=== PATIENT | male | born 1955 | race Caucasian/White ===

== ENCOUNTER → 2016-03-19 | Outpatient (CLI) | payer BC | LOC: LAB.O 12:50 | PROVIDERS: ATTEND Internal Medicine Nephrology | DX: N18.4 Chronic kidney disease, stage 4 (severe) (principal); N17.9 Acute kidney failure, unspecified ==

== ENCOUNTER → 2016-03-24 | Outpatient (CLI) | payer BC | LOC: LAB.O 11:41 | PROVIDERS: ATTEND Internal Medicine Nephrology | DX: N18.4 Chronic kidney disease, stage 4 (severe) (principal); N17.9 Acute kidney failure, unspecified ==

== ENCOUNTER → 2016-04-25 | Outpatient (CLI) | payer BC | END | disposition home or self-care (01) | LOC: GMAM 09:29 | PROVIDERS: ATTEND Family Medicine | DX: E87.1 Hypo-osmolality and hyponatremia (principal) ==

== ENCOUNTER → 2016-09-16 | Outpatient (CLI) | payer BC | END | disposition home or self-care (01) | LOC: GMAM 10:57 | PROVIDERS: ATTEND Family Medicine | DX: E55.9 Vitamin D deficiency, unspecified (principal) ==

== ENCOUNTER → 2016-12-01 | Outpatient (CLI) | payer BC | END | disposition home or self-care (01) | LOC: GMAM 14:47 | PROVIDERS: ATTEND Family Medicine | DX: R53.83 Other fatigue (principal) ==

== ENCOUNTER → 2017-06-25 | Outpatient (CLI) | payer MEDICARE | LOC: GMAM 10:21 | PROVIDERS: ATTEND Family Medicine | DX: E53.8 Deficiency of other specified B group vitamins (principal) ==

== ENCOUNTER → 2017-07-09 | Outpatient (CLI) | payer MEDICARE | LOC: GMAM 14:08 | PROVIDERS: ATTEND Family Medicine | DX: S73.109A Unspecified sprain of unspecified hip, initial encounter (principal); S76.919A Strain of unspecified muscles, fascia and tendons at thigh level, unspecified thigh, initial encounter ==

== ENCOUNTER → 2017-07-14 | Outpatient (CLI) | payer MEDICARE ==
--- NOTE | 2017-07-15 08:25 | MRI ---
EXAM DESCRIPTION: Lumbar Spine w/o Contrast MRI. CLINICAL HISTORY: LUMBAR RADICULOPATHY COMPARISON: None. TECHNIQUE: Multiplanar, multiple standard sequences, non contrast MRI, lumbar spine. FINDINGS: The S1 vertebra appears to be transitional partially lumbarized with a rudimentary S1-2 disc. The L5-S1 disc space is designated on the axial T2-weighted series 501, at image 3. L5-S1: Moderate to severe disc space loss, midline and the left margin associated with Modic type II endplate reactive changes. Disc spur complex abutting the exiting left L5 nerve with moderate to severe foraminal narrowing. Trace retrolisthesis in the midline. Disc is also bulging into the left paracentral extradural space. Mild to moderate narrowing of the right foramen. Minimal ligament hypertrophy posterior with AP canal diameter 12 mm. L4-5: Trace retrolisthesis in the midline. Disc desiccation. Moderate narrowing of the left foramen with right foramen patent. Mild to moderate canal narrowing with minimal flavum ligament hypertrophy. L3-4: Disc desiccation. Tiny posterior midline bulge. Flavum ligament hypertrophy. Mild bilateral foraminal narrowing and canal narrowing. L2-3: Minimal disc desiccation and disc space preserved with no bulging. Minimal flavum ligament hypertrophy. Canal and foramina are patent. L1-2: Minimal disc desiccation with no bulging and disc space preserved. Posterior elements are unremarkable. Canal and foramina are patent. T12-L1: Minimal disc desiccation. Old Schmorl's node inferior T12 endplate. No disc bulging. Conus terminates at this level. Canal and foramina are patent.. No scoliosis. Paravertebral soft tissues minimal muscle atrophy.. Normal marrow signal in the remaining vertebral bodies and the posterior elements. Vertebral bodies are not compressed at any level. IMPRESSION: 1. Moderate spondylosis in the midline into the left at L5-S1. Disc spur complex abutting the left L5 nerve in the foramen. Correlate for radiculopathy. Trace retrolisthesis. 2. Disc desiccation L4-5 with moderate narrowing of the left foramen. No canal or foraminal stenosis at the remaining levels. No significant disc bulging or spondylolisthesis. Electronically signed by: Kenny Taylor MD 07/15/2017 8:23 AM CDT
== END ==
LOC: MRI 14:00
PROVIDERS: ATTEND Family Medicine
DX: M47.27 Other spondylosis with radiculopathy, lumbosacral region (principal)

== ENCOUNTER → 2017-07-17 | Outpatient (CLI) | payer MEDICARE ==
--- NOTE | 2017-07-17 10:54 | US ---
EXAM DESCRIPTION: Venous,Lower Extremity RT CLINICAL HISTORY: PEDAL EDEMA COMPARISON: None. TECHNIQUE: 2D grayscale and color venous duplex Doppler evaluation of the lower extremity are obtained from groin to calf. FINDINGS: There is normal flow, augmentation to flow, and compressibility of the deep venous vasculature of the right lower extremity with no ultrasound evidence of deep venous thrombosis. There is an anechoic cyst in the popliteal fossa measuring 5.9 x 3.0 x 1.2 cm. Mild subcutaneous soft tissue edema in the distal lower extremity is noted. IMPRESSION: No ultrasound evidence of deep venous thrombosis . Moderate Holliday's cyst is seen. Electronically signed by: Hernan Knox MD 07/17/2017 10:52 AM CDT
== END ==
LOC: US 11:46
PROVIDERS: ATTEND Family Medicine
DX: R60.0 Localized edema (principal); M71.21 Synovial cyst of popliteal space [Baker], right knee

== ENCOUNTER 2017-07-20 09:30 | Inpatient (IN) | payer MEDICARE ==
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
[2017-07-20] MEDS ORDERED: ACETAMINOPHEN 325 MG TAB PO PRN (10:16)
[2017-07-20] MEDS ORDERED: SODIUM CHLORIDE 0.9% (FLUSH) 10 ML SYG IV PRN (10:16)
[2017-07-20] MEDS ORDERED: VANCOMYCIN PER PHARMACY IVPB SCH (10:30)
[2017-07-20] MEDS ORDERED: IV SET AND CAP CHANGE INJ INJ SCH (10:30)
--- NOTE | 2017-07-20 10:59 | PCM.CORE ---
Physician DVT/VTE - Nurse DVT Assessment & Total Each Risk Factor Represents 2 Points: Age 60-74 Each Risk Factor is 1 Point: Obesity (BMI >25) DVT Assessment Score: 3 - 3-4 High Risk Treatments: Early Ambulation *, Sequential Compression Device Pharmacological: Enoxaparin 40 mg SQ Daily
[2017-07-20] MEDS ORDERED: ENOXAPARIN SODIUM 40 MG/0.4 ML SYG SUBCU SCH (11:00)
[2017-07-20] MEDS ORDERED: SODIUM CHL 0.9% 50ML MIN-BAG+ 50 ML IVPB ONE ×2 (11:37→20:25)
[2017-07-20] MEDS ORDERED: cefTRIAXone SODIUM 1 GM VIAL ONE ×2 (11:37→20:26)
[2017-07-20] MEDS: cefTRIAXone SODIUM 1 GM in SODIUM CHL 0.9% 50ML MIN-BAG+ 50 ML IVPB SCH ×2 (11:41→22:30)
[2017-07-20] MEDS ORDERED: VANCOMYCIN HCL INJ 1,000 MG, VANCOMYCIN HCL INJ 250 MG in SODIUM CHLORIDE 0.9% 250ML 25... IVPB SCH (12:00)
[2017-07-20] MEDS ORDERED: VANCOMYCIN HCL INJ 500 MG VIAL ONE (12:47)
[2017-07-20] MEDS ORDERED: SODIUM CHLORIDE 0.9% 250ML 250 ML ONE (12:47)
[2017-07-20] MEDS ORDERED: VANCOMYCIN HCL INJ 1,000 MG VIAL IVPB ONE (12:47)
--- NOTE | 2017-07-20 13:05 | RAD ---
EXAM DESCRIPTION: Ankle,Right 3 Views CLINICAL HISTORY: cellulitis COMPARISON: July 09, 2017 IMPRESSION: 3 views of the right ankle show no evidence of acute fracture, focal bone destruction, or joint dislocation. Ankle mortise appears maintained. Moderate soft tissue swelling around the ankle is stable similar to previous. Small plantar enthesophyte of the calcaneus is seen. Electronically signed by: Hernan Knox MD 07/20/2017 1:04 PM CDT
--- NOTE | 2017-07-20 13:06 | RAD ---
EXAM DESCRIPTION: Tibia/Fibula,Right CLINICAL HISTORY: cellulitis COMPARISON: None. IMPRESSION: 2 views of the right tibia and fibula show no evidence of acute fracture, focal bone destruction, or joint dislocation. Periosteal thickening around the proximal fibula could represent sequela of remote prior trauma. Mild diffuse soft tissue swelling is seen. No radiopaque foreign bodies or soft tissue emphysema is appreciated. Electronically signed by: Hernan Knox MD 07/20/2017 1:05 PM CDT
[2017-07-20] MEDS: CARBIDOPA/LEVODOPA 25/100 1 TAB PO SCH ×2 (15:58→21:28)
[2017-07-20] MEDS: ARIPIPRAZOLE 2 MG PO SCH (21:22)
[2017-07-20] MEDS: CARVEDILOL 12.5 MG TAB PO SCH (21:23)
[2017-07-20] MEDS: FISH OIL 1,200 MG CAP PO SCH (21:24)
[2017-07-20] MEDS: LIFITEGRAST BOTH_EYES SCH (21:25)
[2017-07-20] MEDS: ATORVASTATIN 20 MG TAB PO SCH (21:26)
[2017-07-20] MEDS: MELATONIN 3 MG TAB PO SCH (21:27)
[2017-07-20] MEDS: MEMANTINE 10 MG TAB PO SCH (21:27)
[2017-07-20] MEDS: SODIUM CHLORIDE 0.9% (FLUSH) 10 ML SYG IV SCH (21:28)
[2017-07-20] MEDS: NON-FORMULARY MEDICATION 1 EA MIS (Telmisartan [Micardis] 40 MG) PO SCH (21:29)
[2017-07-21] MEDS ORDERED: VANCOMYCIN HCL INJ 500 MG VIAL ONE ×3 (00:49→22:06)
[2017-07-21] MEDS ORDERED: SODIUM CHLORIDE 0.9% 250ML 250 ML ONE ×3 (00:49→22:06)
[2017-07-21] MEDS: VANCOMYCIN HCL INJ 1,000 MG, VANCOMYCIN HCL INJ 250 MG in SODIUM CHLORIDE 0.9% 250ML 25... IVPB SCH ×2 (00:59→12:48)
[2017-07-21] MEDS ORDERED: VANCOMYCIN HCL INJ 1,000 MG VIAL IVPB ONE ×3 (01:03→22:06)
[2017-07-21] MEDS: PANTOPRAZOLE SODIUM TAB 40 MG PO SCH (05:54)
[2017-07-21] MEDS ORDERED: TELMISARTAN 20 MG PO SCH (09:00)
[2017-07-21] MEDS ORDERED: ENOXAPARIN SODIUM 40 MG/0.4 ML SYG SUBCU SCH (09:00)
[2017-07-21] MEDS ORDERED: CARVEDILOL 12.5 MG TAB PO SCH (09:00)
[2017-07-21] MEDS ORDERED: amLODIPine BESYLATE 5 MG TAB PO SCH ×2 (09:00→21:00)
[2017-07-21] MEDS: FENOFIBRIC ACID 135 MG CAP PO SCH (09:25)
[2017-07-21] MEDS: FISH OIL 1,200 MG CAP PO SCH ×2 (09:25→21:02)
[2017-07-21] MEDS: BIFIDOBACTERIUM INFANTIS 4 MG CAP PO SCH (09:25)
[2017-07-21] MEDS: CHOLECALCIFEROL 2,000 IU TAB PO SCH (09:27)
[2017-07-21] MEDS: CARBIDOPA/LEVODOPA 25/100 1 TAB PO SCH ×3 (09:27→21:04)
[2017-07-21] MEDS: VENLAFAXINE HCL TAB 75 MG TAB PO SCH (09:29)
[2017-07-21] MEDS: MEMANTINE 10 MG TAB PO SCH ×2 (09:29→21:03)
[2017-07-21] MEDS: SODIUM CHLORIDE 0.9% (FLUSH) 10 ML SYG IV SCH ×2 (09:31→21:03)
[2017-07-21] MEDS: CYANOCOBALAMIN 1,000 MCG TAB PO SCH (09:31)
[2017-07-21] MEDS: [UNRECOGNIZED DRUG - OTHER] TD SCH (09:33)
[2017-07-21] MEDS: LIFITEGRAST BOTH_EYES SCH ×2 (09:33→21:02)
[2017-07-21] MEDS: RIVASTIGMINE 9.5 MG/24 HR TD SCH (09:33)
[2017-07-21] MEDS ORDERED: cefTRIAXone SODIUM 1 GM VIAL ONE ×2 (10:04→20:41)
[2017-07-21] MEDS ORDERED: SODIUM CHL 0.9% 50ML MIN-BAG+ 50 ML IVPB ONE ×2 (10:04→20:39)
[2017-07-21] MEDS: cefTRIAXone SODIUM 1 GM in SODIUM CHL 0.9% 50ML MIN-BAG+ 50 ML IVPB SCH ×2 (10:36→22:22)
[2017-07-21] MEDS ORDERED: amLODIPine BESYLATE 5 MG TAB PO ONE (14:32)
--- NOTE | 2017-07-21 20:19 | PN ---
DATE: 07/21/17 SUPERVISING PHYSICIAN: Eitan Haynes M.D. SUBJECTIVE: The patient has been afebrile. He reports that his pain is much less and is feeling better. He has had no complications from therapy. OBJECTIVE: VITAL SIGNS: Temperature 98.1, pulse 64, blood pressure 154/82, respirations 18, satting 97% on room air. I's and O's are well balanced. His weight is 91.8 kg. CHEST: Lungs are clear to auscultation. HEART: Regular rate and rhythm. ABDOMEN: Soft, non-tender. Positive bowel sounds. EXTREMITIES: Right lower extremity continues to show some mild erythema on the anterior portion of the distal tib/fib area. Again, there is no consolidations , abscesses or drainage noted. The area is much improved and less edema noted. Pulses are distally strong. Capillary refill is brisk. NEUROLOGIC: He is alert and oriented times three. LABORATORY: White count 5,000, hemoglobin 13.5, hematocrit 39.4, platelet count 255,000. Differential shows to be without a left shift. Electrolytes today show sodium 133, potassium 3.5, BUN 9, creatinine 0.83, calcium 8.9. RADIOLOGY: No new radiological studies were submitted. ASSESSMENT: 1. Right lower extremity cellulitis, nonpurulent, failing to respond to outpatient treatment plan to include Bactrim, Keflex and doxycycline initially showing good response with vancomycin and Rocephin. 2. Chronic bilateral pedal edema secondary to calcium channel uziel. 3. Hypertension. 4. Lewy body dementia with reported behavioral disturbances. 5. Gastroesophageal reflux disease. 6. Benign prostatic hypertrophy. 7. Obstructive sleep apnea. PLAN: Will continue an additional 24 hours of parenteral antibiotics to include Rocephin and vancomycin. If he continues to show good response, anticipate discharging tomorrow. Will continue with close monitoring, including keep his knee elevated as much as possible. Once able to be discharged, he will need to continue with antibiotic therapy with doxycycline and a third generation cephalosporin for probably at least another 10 days. Until discharge, will continue to monitor and treat appropriately. #[id number] [facility]
[2017-07-21] MEDS: ARIPIPRAZOLE 2 MG PO SCH (21:00)
[2017-07-21] MEDS: CARVEDILOL 12.5 MG TAB PO SCH (21:01)
[2017-07-21] MEDS: MELATONIN 3 MG TAB PO SCH (21:03)
[2017-07-21] MEDS: ATORVASTATIN 20 MG TAB PO SCH (21:03)
[2017-07-21] MEDS: NON-FORMULARY MEDICATION 1 EA MIS (Telmisartan [Micardis] 40 MG) PO SCH (21:04)
[2017-07-22] MEDS: VANCOMYCIN HCL INJ 1,000 MG, VANCOMYCIN HCL INJ 250 MG in SODIUM CHLORIDE 0.9% 250ML 25... IVPB SCH (01:13)
[2017-07-22] MEDS: CARBIDOPA/LEVODOPA 25/100 1 TAB PO SCH (06:26)
[2017-07-22] MEDS: PANTOPRAZOLE SODIUM TAB 40 MG PO SCH (06:26)
[2017-07-22] MEDS ORDERED: TELMISARTAN 20 MG PO SCH (06:30)
[2017-07-22] MEDS ORDERED: CARVEDILOL 12.5 MG TAB PO SCH (06:30)
[2017-07-22 07:16] VITALS: BP 147/83; TEMP 98.5
[2017-07-22 07:54] VITALS: O2SAT 98
[2017-07-22] MEDS: LIFITEGRAST BOTH_EYES SCH (08:48)
[2017-07-22] MEDS: RIVASTIGMINE 9.5 MG/24 HR TD SCH (08:50)
[2017-07-22] MEDS: [UNRECOGNIZED DRUG - OTHER] TD SCH (08:50)
[2017-07-22] MEDS: FENOFIBRIC ACID 135 MG CAP PO SCH (08:51)
[2017-07-22] MEDS: MEMANTINE 10 MG TAB PO SCH (08:52)
[2017-07-22] MEDS: VENLAFAXINE HCL TAB 75 MG TAB PO SCH (08:52)
[2017-07-22] MEDS: BIFIDOBACTERIUM INFANTIS 4 MG CAP PO SCH (08:52)
[2017-07-22] MEDS: CHOLECALCIFEROL 2,000 IU TAB PO SCH (08:52)
[2017-07-22] MEDS: FISH OIL 1,200 MG CAP PO SCH (08:52)
[2017-07-22] MEDS: CYANOCOBALAMIN 1,000 MCG TAB PO SCH (08:53)
[2017-07-22] MEDS: SODIUM CHLORIDE 0.9% (FLUSH) 10 ML SYG IV SCH (08:59)
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
== END 2017-07-22 10:47 | disposition home or self-care (01) | DRG 603 ==
LOC: MS 09:30
PROVIDERS: ADMIT Nurse Practitioner Family; ATTEND Nurse Practitioner Acute Care
DX: L03.115 Cellulitis of right lower limb (principal); F02.81 Dementia in other diseases classified elsewhere, unspecified severity, with behavioral disturbance; R60.0 Localized edema; G31.83 Neurocognitive disorder with Lewy bodies; M19.90 Unspecified osteoarthritis, unspecified site; I10 Essential (primary) hypertension; K21.9 Gastro-esophageal reflux disease without esophagitis; R27.0 Ataxia, unspecified; N40.0 Benign prostatic hyperplasia without lower urinary tract symptoms; G47.33 Obstructive sleep apnea (adult) (pediatric); G89.29 Other chronic pain; M54.16 Radiculopathy, lumbar region; K58.9 Irritable bowel syndrome, unspecified; K86.89 Other specified diseases of pancreas; Z88.0 Allergy status to penicillin; Z79.899 Other long term (current) drug therapy; Z91.030 Bee allergy status; Y92.009 Unspecified place in unspecified non-institutional (private) residence as the place of occurrence of the external cause

== ENCOUNTER → 2017-08-12 | Outpatient (CLI) | payer MEDICARE | LOC: GMAM 10:22 | PROVIDERS: ATTEND Family Medicine | DX: E53.8 Deficiency of other specified B group vitamins (principal) ==

== ENCOUNTER → 2017-09-24 | Outpatient (CLI) | payer MEDICARE ==
--- NOTE | 2017-09-24 20:21 | US ---
EXAM DESCRIPTION: Soft Tissue,Head/Neck: ULTRASOUND. CLINICAL HISTORY: SKIN MASS COMPARISON: None Available. TECHNIQUE: Transcutaneous scanning: Lim-scale and Doppler modes. FINDINGS: Palpable mass in the midline base of the neck anterior. A mass with is isoechoic to the surrounding adipose tissue. Echogenic capsule and slightly lobular. Not vascular. Dimensions are 1.7 x 0.8 x 1.9 cm. Second mass in the adjacent soft tissues with similar appearance measuring 1.9 x 0.9 x 1.5 cm. Also not vascular. Midline base of the neck anterior is another palpable objects isoechoic to the surrounding adipose tissue measuring 5.1 x 1.3 x 3.6 cm. No separate hypoechoic mass or distinct cyst. No large calcifications or parenchymal edema. No abnormal vascularity. IMPRESSION: Multiple lipomas on the anterior neck which are palpable. If masses increase or becomes painful or resultant skin changes, consider MRI scan of the neck without and with gadolinium IV contrast. Electronically signed by: Kenny Taylor MD 09/24/2017 8:20 PM CDT
== END ==
LOC: US 13:51
PROVIDERS: ATTEND Family Medicine
DX: R22.2 Localized swelling, mass and lump, trunk (principal); D17.9 Benign lipomatous neoplasm, unspecified

== ENCOUNTER → 2017-11-16 | Outpatient (CLI) | payer MEDICARE | LOC: GMAM 11:45 | PROVIDERS: ATTEND Family Medicine | DX: E53.8 Deficiency of other specified B group vitamins (principal); E55.9 Vitamin D deficiency, unspecified; Z12.5 Encounter for screening for malignant neoplasm of prostate | CPT/HCPCS: 82306; 82607; G0103 ==

== ENCOUNTER → 2018-02-16 | Outpatient (CLI) | payer MEDICARE | LOC: GMAM 10:55 | PROVIDERS: ATTEND Family Medicine | DX: E53.8 Deficiency of other specified B group vitamins (principal); E55.9 Vitamin D deficiency, unspecified ==

== ENCOUNTER → 2018-05-26 | Outpatient (CLI) | payer MEDICARE, OTHER | LOC: GMAM 10:55 | PROVIDERS: ATTEND Family Medicine | DX: Z11.59 Encounter for screening for other viral diseases (principal) ==

== ENCOUNTER → 2018-10-05 | Outpatient (CLI) | payer MEDICARE, OTHER | LOC: GMAM 08:35 | PROVIDERS: ATTEND Family Medicine | DX: E53.8 Deficiency of other specified B group vitamins (principal); E83.51 Hypocalcemia; I10 Essential (primary) hypertension ==

== ENCOUNTER → 2018-11-12 | Outpatient (CLI) | payer MEDICARE, OTHER ==
--- NOTE | 2018-11-12 14:15 | MRI ---
EXAM DESCRIPTION: Lumbar Spine w/o Contrast : Magnetic Resonance Imaging. CLINICAL HISTORY: LUMBAR DISC DISEASE COMPARISON: LUMBAR TECHNIQUE: Multiplanar, multiple standard sequences, non contrast MRI, lumbar spine. FINDINGS: L5-S1 disc is well visualized on axial T2 series 501, image 7. S1 segment is transitional and partially lumbarized more left than right. Rudimentary S1-S2 disc. Canal, facets, and foramina are sacralized at S1-S2. L5-S1: Moderate endplate reactive changes and disc space narrowing more to the left of midline. Trace retrolisthesis with only disc remnant on the left. Also hypertrophic left facet arthrosis. Abutting the exiting left L5 nerve with moderate to severe foraminal narrowing and moderate narrowing of the right foramen. Minimal posterior bulge of the disc remnant with AP canal diameter 13 mm, stable since the prior study. L4-L5: disc desiccation posterior broad-based 4 mm bulge. Bilateral hypertrophic facet arthrosis and ligament thickening more right than left. AP canal diameter 7 mm. Effacement of the right subarticular recess abutting the descending right L4 nerve. Mild bilateral foraminal narrowing. Bulging of the disc, canal stenosis, and stenosis right subarticular recess of increased since the prior study. L3-L4: Disc desiccation with disc space maintained. No significant bulging. Bilateral hypertrophic facet arthrosis and minimal ligament thickening with AP canal diameter 13 mm and bilateral foramina are patent. Stable since the prior study. L2-L3: Normal signal in the disc and disc space preserved. No bulging. Minimal hypertrophic facet arthrosis and ligament thickening with AP canal diameter 13 mm. Bilateral foramina are patent. L1-L2: Disc desiccation with disc space preserved. Small Schmorl's node in the superior T12 endplate. Posterior elements unremarkable. Canal and foramina are patent. T12-L1: Disc desiccation with disc space preserved. Schmorl's node inferior T12 endplate. Posterior elements unremarkable. Canal and foramina are patent. Conus terminates at this level. No scoliosis. Paravertebral soft tissues normal.. Distal cord normal signal and caliber. Normal marrow signal in the remaining vertebral bodies and the posterior elements. Vertebral bodies are not compressed at any level. IMPRESSION: 1. Desiccation of the L4-5 disc with minimal bulge in the midline into the right of midline increased since the prior study. Hypertrophic right facet arthrosis and ligament thickening also increased since the prior study. Right subarticular recess stenosis and likely compromise descending right L5 nerve. Right paracentral moderate canal stenosis. This has progressed since the prior study. 2. Transitional lumbarized S1 segment with S1-S2 rudimentary disc. Hypertrophic facet arthrosis and ligament thickening at multiple levels along with disc desiccation. 3. Spondylosis left posterior lateral L5-S1 disc space and endplates and hypertrophy of the left facet with moderate to severe left foraminal narrowing abutting the left L5 nerve. Mild to moderate canal narrowing. Stable since the prior study. Electronically signed by: Kenny Taylor MD 11/12/2018 2:13 PM CDT
== END ==
LOC: MRI 09:00
PROVIDERS: ATTEND Family Medicine
DX: M51.27 Other intervertebral disc displacement, lumbosacral region (principal); M51.36 Other intervertebral disc degeneration, lumbar region; M47.897 Other spondylosis, lumbosacral region

== ENCOUNTER 2018-12-14 20:18 | Emergency (ER) | payer MEDICARE, OTHER ==
[2018-12-14] MEDS ORDERED: SODIUM CHLORIDE 0.9% (FLUSH) 10 ML SYG IV PRN (21:15)
[2018-12-14] MEDS ORDERED: ONDANSETRON INJ 4 MG/2 ML VIAL IV ONE (21:15)
[2018-12-14] MEDS ORDERED: SODIUM CHLORIDE 0.9% 1000ML 1,000 ML IVS ONE (21:15)
[2018-12-14 22:34] VITALS: TEMP 96.9
[2018-12-14 23:20] VITALS: BP 131/78; O2SAT 94
--- NOTE | 2018-12-14 23:50 | ED.PDOC ---
History of Present Illness - General Chief Complaint: Syncope/Near Syncope Stated Complaint: getting dizzy upon standing Time Seen by Provider: 12/14/18 21:15 Source: patient, RN notes reviewed, Vital Signs reviewed, family - - History of Present Illness Initial Comments: patient is 63-year-old white male who presents with multiple episodes of near syncope and syncope over the last few months. Patient has had workup with his PCP and is under treatment for multiple medical problems. Patient is had problems controlling his blood pressure. It either is going to high or too low. Patient states that he became dizzy and his vision clouded just prior to near- syncope. He never actually fell and hit the floor. He was able to catch himself and then to the floor., Nausea, vomiting, chest pain, shortness of breath. Patient has had diarrhea for the last few days. Denies any fever or chills. Getting up and moving around seems to make the near-syncope worse. Resting makes it better. Timing/Prior Episodes: recent history Precipitating Factors: diaphoresis, lightheadedness, nausea Context: standing Episode Description: econds Loss of Consciousness: no loss of consciousness Current Symptoms: back to normal Allergies/Adverse Reactions: Allergies Bee Venom Allergy (Verified 11/15/18 10:10) Penicillins Allergy (Verified 11/15/18 10:10) Shellfish Allergy Allergy (Verified 11/15/18 10:10) Home Medications: Ambulatory Orders Pantoprazole Sodium 40 mg PO DAILY 02/13/16 Venlafaxine HCl [Effexor] 225 mg PO DAILY 02/13/16 Amlodipine Besylate 10 mg PO DAILY 07/20/17 Aripiprazole 2 mg PO BEDTIME 07/20/17 Carbidopa/Levodopa 25/100 [Sinemet 25/100] 1 ea PO TID 07/20/17 Carvedilol 18.75 mg PO BEDTIME 07/20/17 Carvedilol 25 mg PO DAILY 07/20/17 Cephalexin Monohydrate [Keflex] 500 mg PO QID 07/20/17 Cholecalciferol [Vitamin D] 1,000 unit PO DAILY 07/20/17 Cyanocobalamin [Vitamin B-12] 2,500 mcg SL DAILY 07/20/17 Doxycycline Hyclate 100 mg PO BID 07/20/17 Fenofibrate Micronized 134 mg PO DAILY 07/20/17 Lifitegrast [Xiidra] 1 drop BOTH_EYES Q12HRS 07/20/17 Melatonin 3 mg PO BEDTIME 07/20/17 Memantine [Namenda] 10 mg PO BID 07/20/17 Keene-3 Fatty Acids [Fish Oil] 1,000 mg PO BID 07/20/17 Potassium Chloride [Potassium Chloride ER] 8 meq PO DAILY PRN 07/20/17 Probiotic Product [Probiotic] 1 tab PO BID 07/20/17 Rivastigmine 9.5MG/24Hr Patch [Exelon 9.5mg/24hr Patch] 9.5 mg TD DAILY 07/20/17 Rosuvastatin Calcium [Crestor] 40 mg PO BEDTIME 07/20/17 Telmisartan [Micardis] 20 mg PO DAILY 07/20/17 Telmisartan [Micardis] 40 mg PO BEDTIME 07/20/17 Review of Systems - Review of Systems Constitutional: States: see HPI, malaise, weakness EENTM: States: see HPI, blurred vision Respiratory: States: no symptoms reported Cardiology: States: no symptoms reported Gastrointestinal/Abdominal: States: see HPI, nausea Genitourinary: States: no symptoms reported Musculoskeletal: States: no symptoms reported Skin: States: no symptoms reported Neurological: States: see HPI, weakness All other Systems: Reviewed and Negative Past Medical History (General) - Patient Medical History Hx Seizures: No Hx Stroke: No Hx Asthma: No Hx of COPD: No Hx Congestive Heart Failure: No Hx Pacemaker: No Hx Hypertension: Yes Hx Diabetes: No Hx MRSA: No - Vaccination History Hx Influenza Vaccination: Yes Hx Pneumococcal Vaccination: Yes - Social History Hx Tobacco Use: No Hx Alcohol Use: No Hx Substance Use: No Hx Physical Abuse: No Hx Emotional Abuse: No - Activities of Daily Living Hospice Agency (if applicable):: None - Triage Comment ED Triage Comment: pt wheeled into ED via wheelchair by upon arrival. Pt able to converse. voices pt has been increasing weak upon standing since last night. voices that when pt stands, he has been falling to the ground at times. pt voices that he has had alcohol to drink tonight Progress - Progress Progress: 12/14/18 23:51 patient's labs were all unremarkable. There is no sign of urinary tract infection. He does appear to be mildly dehydrated. EKG is normal. He has no risk factors for PE or DVT. Patient's symptoms all resolved after 1 L of IV fluid. Plan on discharge, follow up PCP. I discussed this plan care with the patient and his and they voice understanding and agreement. Wolfgang Bond M.D. #[id number] - Results/Orders Results/Orders: 12/14/18 21:15 IV Care:Saline Lock per Protoc QSHIFT Sodium Chloride 0.9% (Flush) [Saline Flush Syringe] 10 ml IV PRN PRN EKG STAT 12/15/18 21:15 EKG STAT Laboratory Results - last 24 hr 12/14/18 12/14/18 12/14/18 21:30 21:30 21:30 WBC 4.6 L RBC 4.64 L Hgb 14.4 Hct 42.8 MCV 92.2 MCH 31.1 H MCHC 33.7 RDW 14.2 Plt Count 224 MPV 7.1 L Absolute Neuts (auto) 2.10 Absolute Lymphs (auto) 1.30 Absolute Monos (auto) 1.00 H Absolute Eos (auto) 0.10 Absolute Basos (auto) 0.00 Neutrophils % 45.4 Lymphocytes % 28.8 Monocytes % 21.8 H Eosinophils % 3.0 Basophils % 1.0 Sodium 134 L Potassium 4.2 Chloride 94 L Carbon Dioxide 26 Anion Gap 18.2 H BUN 21 H Creatinine 1.22 BUN/Creatinine Ratio 17.2 Random Glucose 96 Serum Osmolality 271.1 L Calcium 8.7 Total Bilirubin 0.4 Direct Bilirubin 0.1 Indirect Bilirubin 0.3 AST 34 ALT 15 Alkaline Phosphatase 46 Troponin I Serum Total Protein 6.9 Albumin 4.0 Lipase 37 Urine Color Urine Appearance Urine pH Ur Specific Avery Urine Protein Urine Glucose (UA) Urine Ketones Urine Blood Urine Nitrite Urine Bilirubin Urine Urobilinogen Ur Leukocyte Esterase Urine RBC Urine WBC Ur Epithelial Cells Urine Bacteria 12/14/18 12/14/18 21:30 22:32 WBC RBC Hgb Hct MCV MCH MCHC RDW Plt Count MPV Absolute Neuts (auto) Absolute Lymphs (auto) Absolute Monos (auto) Absolute Eos (auto) Absolute Basos (auto) Neutrophils % Lymphocytes % Monocytes % Eosinophils % Basophils % Sodium Potassium Chloride Carbon Dioxide Anion Gap BUN Creatinine BUN/Creatinine Ratio Random Glucose Serum Osmolality Calcium Total Bilirubin Direct Bilirubin Indirect Bilirubin AST ALT Alkaline Phosphatase Troponin I < 0.02 Serum Total Protein Albumin Lipase Urine Color Yellow Urine Appearance Clear Urine pH 5.5 Ur Specific Avery <= 1.005 Urine Protein Negative Urine Glucose (UA) Negative Urine Ketones Negative Urine Blood Negative Urine Nitrite Negative Urine Bilirubin Negative Urine Urobilinogen 0.2 Ur Leukocyte Esterase Negative Urine RBC 0 Urine WBC 0 Ur Epithelial Cells 0 Urine Bacteria 0 EKG performed on 14 December 2018 at 2127 hrs.: Beats per minute, normal axis deviation, no ST or T wave changes, normal EKG. Departure - Departure Clinical Impression: Near syncope, Dehydration Time of Disposition: 23:55 Disposition: Discharge to Home or Self Care Condition: Good Departure Forms: ED Discharge - Pt. Copy, Patient Portal Self Enrollment Instructions: DI for Syncope in Adults (Fainting), Dehydration, Adult (DC) Referrals: Eitan Haynes MD [Primary Care Provider] - 1-2 Weeks Home Medications: Ambulatory Orders Pantoprazole Sodium 40 mg PO DAILY 02/13/16 Venlafaxine HCl [Effexor] 225 mg PO DAILY 02/13/16 Amlodipine Besylate 10 mg PO DAILY 07/20/17 Aripiprazole 2 mg PO BEDTIME 07/20/17 Carbidopa/Levodopa 25/100 [Sinemet 25/100] 1 ea PO TID 07/20/17 Carvedilol 18.75 mg PO BEDTIME 07/20/17 Carvedilol 25 mg PO DAILY 07/20/17 Cephalexin Monohydrate [Keflex] 500 mg PO QID 07/20/17 Cholecalciferol [Vitamin D] 1,000 unit PO DAILY 07/20/17 Cyanocobalamin [Vitamin B-12] 2,500 mcg SL DAILY 07/20/17 Doxycycline Hyclate 100 mg PO BID 07/20/17 Fenofibrate Micronized 134 mg PO DAILY 07/20/17 Lifitegrast [Xiidra] 1 drop BOTH_EYES Q12HRS 07/20/17 Melatonin 3 mg PO BEDTIME 07/20/17 Memantine [Namenda] 10 mg PO BID 07/20/17 Keene-3 Fatty Acids [Fish Oil] 1,000 mg PO BID 07/20/17 Potassium Chloride [Potassium Chloride ER] 8 meq PO DAILY PRN 07/20/17 Probiotic Product [Probiotic] 1 tab PO BID 07/20/17 Rivastigmine 9.5MG/24Hr Patch [Exelon 9.5mg/24hr Patch] 9.5 mg TD DAILY 07/20/17 Rosuvastatin Calcium [Crestor] 40 mg PO BEDTIME 07/20/17 Telmisartan [Micardis] 20 mg PO DAILY 07/20/17 Telmisartan [Micardis] 40 mg PO BEDTIME 07/20/17
== END 2018-12-15 00:12 | disposition home or self-care (01) ==
LOC: ER 20:18
DX: R55 Syncope and collapse (principal); E86.0 Dehydration; R42 Dizziness and giddiness; R19.7 Diarrhea, unspecified; I10 Essential (primary) hypertension; Z79.899 Other long term (current) drug therapy; Z88.0 Allergy status to penicillin; Z91.013 Allergy to seafood
CPT/HCPCS: 36415; 80048; 80076; 81001; 83690; 84484; 85025; 93005; J2405; J7030

== ENCOUNTER → 2019-03-16 | Outpatient (CLI) | payer MEDICARE, OTHER | LOC: GMAM 16:48 | PROVIDERS: ATTEND Family Medicine | DX: Z12.5 Encounter for screening for malignant neoplasm of prostate (principal) ==

== ENCOUNTER → 2019-10-31 | Outpatient (CLI) | payer MEDICARE, OTHER | END | disposition home or self-care (01) | LOC: GMAM 10:30 | PROVIDERS: ATTEND Family Medicine | DX: E55.9 Vitamin D deficiency, unspecified (principal) ==

== ENCOUNTER → 2020-03-19 | Outpatient (CLI) | payer MEDICARE, OTHER | LOC: GMAM 10:54 | PROVIDERS: ATTEND Family Medicine | DX: E55.9 Vitamin D deficiency, unspecified (principal); Z12.5 Encounter for screening for malignant neoplasm of prostate; I10 Essential (primary) hypertension; R73.9 Hyperglycemia, unspecified | CPT/HCPCS: 82306; G0103 ==